=== PATIENT | male | born 1985 | race African-American/Black ===

== ENCOUNTER 2017-01-25 08:21 | Emergency (ER) | payer OTHER ==
[~2017-01-25] VITALS: Ht 172.7 cm; Wt 65.0 kg
[2017-01-25 08:27] VITALS: BP 103/50
== END 2017-01-25 11:17 | disposition home or self-care (01) ==
LOC: ER 08:43
DX: S16.1XXA Strain of muscle, fascia and tendon at neck level, initial encounter (principal); S39.012A Strain of muscle, fascia and tendon of lower back, initial encounter; V49.49XA Driver injured in collision with other motor vehicles in traffic accident, initial encounter; Y93.89 Activity, other specified; Y92.89 Other specified places as the place of occurrence of the external cause; Y99.8 Other external cause status
CPT/HCPCS: 99282